=== PATIENT | male | born 1990 | race Caucasian/White ===

== ENCOUNTER 2023-01-01 22:27 | Emergency (ER) | payer BC, SELFPAY ==
[2023-01-01 22:35] VITALS: BP 157/57; PULSE 72; RESP 14; TEMP 36.6; O2SAT 100
[2023-01-01 23:10] VITALS: RESP 16
--- NOTE | 2023-01-01 23:38 | ED.GENADUL_ITS ---
Discharge Plan Disposition Patient Disposition: Home Discharge Details Chief Complaint: GenMedical Clinical Impression: Elevated blood pressure reading, Numbness and tingling in both hands Primary Care Provider: Ana Rosa,Local ED Provider: Cassy Napoles Home Meds and New Rx's Prescriptions: No Action No Known Home Meds Discharge Instructions Instructions: How to Take a Blood Pressure (ED), Hypertension (ED) Additional Instructions: 1. You should expect a packet in the mail regarding a primary care follow-up. 2. Take your blood pressure and documented at home. Make a follow-up appointment with primary care and bring your blood pressure readings along with your blood pressure machine at home to recheck it. 3. Return here for any new or worrisome symptoms such as persistent numbness or tingling, weakness, headache fever chills or any new or worrisome symptoms. Discharge Data Discharge Physician: Cassy Napoles Medical Decision Making This is a healthy 32-year-old male who just returned from 5 days in [place] for a bachelor constitution party where he was drinking, who presents with bilateral numbness and tingling in his hands which lasted 10 minutes at 10 AM this morning. His symptoms have resolved. He was concerned about dehydration but has been able to keep down Gatorade and has not had any vomiting or diarrhea. Clinically he appears well-hydrated and he has a normal neurologic exam. Sensation is intact in his arms there is no focal weakness. He feels back to baseline. I do not see any indication for radiographs or labs. My plan is to reassure him and arrange for primary care follow-up. I will advise him to check his blood pressure when he is not feeling anxious and to record it and bring it with him. I have advised that he bring his blood pressure machine with him to his follow- up appointment to correlate its accuracy. I have advised him to return here if he develops any new or worrisome symptoms such as unilateral weakness recurrent numbness or tingling or any concerns. The patient was understanding agree with the discharge plan. All his questions and concerns were addressed prior to discharge. He has not had a chest pain or shortness of breath. Differential Diagnosis Differential Diagnosis: Hypoventilation, electrolyte abnormality, dehydration Medical Records Medical records reviewed: Yes I reviewed the patient's medical records. HPI General Date/Time Provider Initiated Documentation: 01/01/23 23:38 . Information obtained by: family () and RN notes reviewed . HPI Narrative: The patient is a healthy 32-year-old male who has a history of a kidney infection but no history of hypertension. He returns today from a bachelor constitution party trip to [place]. He does admit to drinking quite a lot when he was there and was concerned that he was dehydrated. He presents today with complaints of feeling jittery and numbness and tingling in his hands and an elevated blood pressure that he believes was 150/80. The numbness and tingling has resolved. The episode occurred at 10 AM this morning. His said he was nervous at the time but she is not sure if he was hyperventilating. He denies any neck pain or trauma. His symptoms have resolved and only lasted about 10 minutes. He denies any previous similar episodes. He denies any vomiting or blood in the stool. He denies any falls or abdominal pain. No previous episodes. He is right-hand dominant. He denies any aggravating or alleviating factors. Related Data Home Medications Medication Instructions Recorded Confirmed Unknown [No Known Home Meds] 01/01/23 01/01/23 Allergies Allergy/AdvReac Type Severity Reaction Status Date / Time No Known Allergies Allergy Unverified 01/01/23 22:39 General Stated Complaint: GenMedical JANELL: 3 Review of Systems Narrative: No headaches. No blurry vision. No chest pain or abdominal pain. No unifocal weakness. No neck pain. No trauma. No nausea or vomiting or diarrhea. No shortness of breath Eyes Eyes: Denies blurry vision PFSH All Active Problems Elevated blood pressure reading (Acute) Numbness and tingling in both hands (Acute) Social History Smoking/Tobacco Use Status: Never Smoking risk assessment performed?: Yes Alcohol Intake: current Substance use type: does not use Housing: house Do you feel safe at home: Yes Do you feel safe in your relationship?: Yes Exam Const General: cooperative, healthy appearing, comfortable, no acute distress, well developed, well groomed and well hydrated Nutritional Appearance: average body habitus and well nourished Orientation: alert, awake and oriented x3 HENMT Head: normal to inspection, normocephalic and atraumatic Ears: hearing grossly normal bilaterally and external ears normal General nose exam: external nose normal, nares normal and no nasal discharge Face and sinus: normal facial exam, sinuses nontender and face symmetric Mouth: oral mucosae normal, lip normal, tongue normal, oropharynx normal, moist mucous membranes and other (Normal phonation. The patient is handling secretions.) Throat: posterior oropharynx normal and uvula midline Eyes General: appearance normal, both eyes and all related structures Eyelids: eyelids normal Conjunctivae: conjunctivae normal Sclera: sclerae normal Cornea: corneas normal Pupils: PERRL EOM: EOM intact bilaterally and No nystagmus Neck Neck: normal visual inspection, full ROM, no lymphadenopathy, no meningeal signs, trachea midline and supple Lymphatic: no lymphadenopathy noted Chest Chest: normal inspection of the chest Resp Effort & Inspection: normal respiratory effort, able to speak in complete sentences, no audible wheezes, no nasal flaring, no respiratory distress, no retractions, no stridor, not tachypneic, no tracheal deviation, no use of accessory muscles, No prolonged expiratory phase and other (Normal inspiratory to expiratory ratio.) Auscultation: clear to auscultation bilaterally, no rales, no rhonchi, no wheezes and no rubs Tactile Fremitus: tactile fremitus absent Cardio Jugular venous pressure: no JVD Palpation: normal PMI Rate: regular rate Rhythm: regular rhythm Heart Sounds: S1 normal, S2 normal, no gallops, no murmurs and no rubs GI Inspection: normal to inspection and non-distended Palpation: soft, no hepatosplenomegaly, no guarding and nontender Percussion: normal to percussion Auscultation: normal bowel sounds General: No CVA tenderness Back/Spine/Pelvis Back: no CVA tenderness and No back tenderness Cervical Spine: normal cervical lordosis, cervical ROM normal, No cervical muscular tenderness, No pain with cervical ROM, No cervical spinal tenderness and No step off deformity Thoracic/Lumbar Spine: thoracic and lumbar spine normal to inspection, No thoracic spinal tenderness and No lumbar spinal tenderness Pelvis: no pain with anterior-posterior compression and no pain with lateral compression Skin General skin exam: no rashes or lesions noted, turgor normal, no petechiae, no purpura and other (Skin is normal for ethnicity.) Lesions: no lesions Rashes: no rashes Trauma: no lacerations or abrasions Neuro General: patient alert, patient awake, patient oriented x3, moves all extremities, no meningeal signs, no focal motor deficits and CN's II-XI intact bilaterally Cranial Nerves: CN's II-XI intact bilaterally, PERRL, accommodation normal, EOM intact bilaterally, no nystagmus, facial strength normal, tongue midline, hearing normal and no nystagmus Cognition: normal cognition Speech: speech normal Gait: normal gait Motor: muscle tone normal throughout and strength 5/5 throughout Sensory Exam: no sensory deficits noted DTR's: Rt Biceps: 2+, Lt Biceps: 2+, Rt Brachioradialis: 2+, Lt Brachioradialis: 2+, Rt Patellar: 2+ and Lt Patellar: 2+ Extrem General: normal to inspection, full ROM, capillary refill normal, no clubbing, cyanosis or edema and no calf tenderness Psych Appearance: grossly normal Affect: normal affect Attitude: cooperative Thought Process: normal Thought Content: normal Insight: insight good Judgment: judgment good Other: The patient appears to have capacity make medical decisions. Course Vital Signs Vital signs: Vital Signs Temperature 36.6 C 01/01/23 22:35 Pulse 72 01/01/23 22:35 Respiratory Rate 14 01/01/23 22:35 Blood Pressure 157/57 H 01/01/23 22:35 Pulse Oximetry 100 01/01/23 22:35 Temperature 36.6 C 01/01/23 22:35 Temperature Source Temporal Artery Scan 01/01/23 22:35 Pulse 72 01/01/23 22:35 Respiratory Rate 16 01/01/23 23:10 Respiratory Effort Normal, Non-Labored 01/01/23 23:10 Respiratory Depth Normal 01/01/23 23:10 Respiratory Pattern Normal 01/01/23 23:10 Blood Pressure 157/57 H 01/01/23 22:35 Blood Pressure Position Sitting 01/01/23 22:35 Pulse Oximetry 100 01/01/23 22:35 Oxygen Delivery Method Room Air 01/01/23 22:35 Oxygen Flow Rate 0 01/01/23 22:35 Pain Level 0 01/01/23 22:35 PAWSS Have you Been Recently Intoxicated or Drunk Within the Last 30 days?: Yes Have you Ever Experienced Previous Episodes of Alcohol Withdrawal?: No Have you ever Experienced Withdrawal Seizures?: No Have you ever Experienced Delirium Tremens(DT)s?: No Have you ever undergone Alcohol Rehabilitation Treatment (i.e, inpt ot outpatient treatment programs)?: No Have you ever Experienced Blackouts?: No Have you ever Combined Alcohol with other Downers within the last 90 days?: No Have you ever Combined Alcohol with any other Substance of Abuse during the last 90 days?: No Positive Blood Alcohol level on Presentation? [PCS.BAL]: No Evidence of Increased Autonomic Activity (i.e. HR>120, tremor, sweating, agitation, nausea)?: No Result: 1
[2023-01-01 23:52] VITALS: BP 147/96; PULSE 90; RESP 14; O2SAT 99
--- NOTE | 2023-01-02 00:15 | NUR.NOTE ---
Referral to Care Management to establish pcp sooner rather than later for elevated blood pressure.Nursing Note:
== END 2023-01-02 00:12 | disposition home or self-care (01) ==
PROVIDERS: Emergency Provider Emergency Medicine Emergency Medical Services
DX: R03.0 Elevated blood-pressure reading, without diagnosis of hypertension (principal); R20.0 Anesthesia of skin; R20.2 Paresthesia of skin
CPT/HCPCS: 99281; 99282

== ENCOUNTER 2023-01-02 13:50 | Emergency (ER) | payer BC, SELFPAY ==
--- NOTE | 2023-01-02 13:45 | RT.EKG_ITS ---
APPROVED REPORT Exam: Resting ECG Reason for Exam: chest pain Patient Location: E HR:81 bpm ECG Measurements Heart Rate 81 AXIS RI 167 P 53 QRSd 93 QRS 7 QT 362 T 30 QTc 420 Conclusion Sinus rhythm...normal P axis, V-rate 60- 99
[2023-01-02 13:52] VITALS: BP 158/102; PULSE 80; RESP 18; TEMP 37.1; O2SAT 100
--- NOTE | 2023-01-02 14:00 | DI.RAD_ITS ---
Exam(s) XR CHEST 2V PA LATERAL EXAM: XR CHEST 2V PA LATERAL CLINICAL HISTORY: CP TECHNIQUE: 2D digital imaging was performed. COMPARISON: No exams were available for comparison FINDINGS: HEART: Normal size. Aorta: Not dilated. PULMONARY VASCULATURE: Normal. LUNGS: Clear. PLEURAL SPACE: No pleural effusion or pneumothorax. BONE:Unremarkable for age. IMPRESSION: No acute abnormality. DATA REPOSITORY: RADIATION DOSE DELIVERED:
--- NOTE | 2023-01-02 14:08 | ED.GENADUL_ITS ---
Discharge Plan Disposition Patient Disposition: Home Discharge Details Clinical Impression: Elevated blood pressure reading, Chest pain, Esophagitis with gastritis Primary Care Provider: Ana Rosa,Local ED Provider: Loreto Calhoun Home Meds and New Rx's Prescriptions: New omeprazole 20 mg capsule,delayed release(DR/EC) 20 mg PO DAILY Qty: 30 0RF Discharge Instructions Instructions: Chest Pain (ED), Gastritis (ED) Additional Instructions: Please follow-up with the [facility] or physician of your choice. Let them know that you are in the ER for chest pain and we wanted you to have follow-up. Take your blood pressure every morning and record these values to take to your new primary care doctor. Try Prilosec 1 tablet/day for epigastric discomfort. You may use Maalox along with this. Return to ED for crushing chest pain, difficulty breathing, vomiting or pooping blood, any other concerns. Medical Decision Making Patient was evidently referred to [facility] for a follow-up appointment after being in the ED last night worried about his blood pressure (he said his hands were throbbing and then turned numb). He evidently refused to follow-up with them. I have told him that we do not usually start blood pressure medicine on someone after only afew blood pressure readings. His has a BP machine at home and I have asked him to take his blood pressure every morning at the same time and record these. He can follow-up with whoever else he likes and bring the numbers to them. I have advised a PPI for his epigastric /lower sternum pain. I suspect he may have irritation from the heavy drinking he recently did in [place]. His EKG is normal and his troponin is negative. He has had pain constantly since yesterday. He has no risk factors for ACS. Medical Records Medical records reviewed: Yes I reviewed the patient's medical records. Lab Data Lab results reviewed: Yes I reviewed the patient's lab results. Lab results narrative: Patient's labs including lipase and troponin are within normal limits except for a glucose of 109 and a total bili of 1.5. Latter is likely related to Gilbert's. ECG Data Attestation: I personally reviewed and interpreted this ECG (s) as follows: (Normal sinus rhythm at 80, normal intervals and EKG.) Interpretation: CXR: NAD HPI General Date/Time Provider Initiated Documentation: 01/02/23 14:05 . HPI Narrative: This 32-year-old male patient presents with a chief complaint of lower substernal chest pain that began 2 days ago. Patient states that he flew in from [place] yesterday arriving about 2:00 in the afternoon. He states he was partying and drinking a lot is down there. Normally he drinks a 12 pack a week. Pain is an ache and does not radiate anywhere. Nothing makes it better or worse. Weight for short time yesterday afternoon but then returned and has been constant since. Patient has no fever or URI symptoms. There is no shortness of breath or abdominal pain. He has no nausea, vomiting, or diarrhea. He has no pedal edema or calf pain. He was seen here yesterday because he felt like his blood pressure was high. I asked him what he meant by this and he says that his hands were pulsating and then they became numb. States he does not know if all of this is just from anxiety. He has no prior history of concussion, diabetes, high cholesterol. There is no family history of ACS. He does not use cocaine or methamphetamine. Related Data Home Medications Medication Instructions Recorded Confirmed omeprazole 20 mg capsule,delayed 20 mg PO DAILY #30 caps 01/02/23 release Previous Rx's Medication Instructions Recorded omeprazole 20 mg capsule,delayed 20 mg PO DAILY #30 caps 01/02/23 release Allergies Allergy/AdvReac Type Severity Reaction Status Date / Time No Known Allergies Allergy Unverified 01/02/23 13:57 General Stated Complaint: Chest Pain JANELL: 3 Review of Systems Constitutional Constitutional: Denies chills, Denies fever(s), Denies headache(s) and Denies weakness Eyes Eyes: Denies diplopia and Reports other (no redness) ENT Ears, Nose, Mouth, and Throat: Denies otalgia, Denies headache(s), Denies nasal congestion, Denies nasal discharge, Denies neck pain and Denies sore throat Cardiovascular Cardiovascular: Denies chest pain, Denies palpitations and Denies dyspnea Respiratory Respiratory: Denies cough and Denies dyspnea Gastrointestinal Gastrointestinal: Denies abdominal pain, Denies diarrhea, Denies nausea and Denies vomiting Genitourinary Genitourinary: Denies difficulty urinating and Denies dysuria Musculoskeletal Musculoskeletal: Denies myalgias, Denies muscle weakness, Denies neck pain, Denies numbness and Reports other (edema) Integumentary/Breasts Skin/Breast: Denies change in pigmentation and Denies rash Neurologic Neurologic: Denies headache(s), Denies numbness and Denies weakness Endocrine Endocrine: Denies palpitations PFSH All Active Problems (Updated 01/02/23 @ 15:58 by Loreto Calhoun MD) Elevated blood pressure reading (Acute) Numbness and tingling in both hands (Acute) Chest pain (Acute) Esophagitis with gastritis (Acute) Social History Smoking/Tobacco Use Status: Never Smoking risk assessment performed?: Yes Alcohol Intake: current Substance use type: does not use Housing: house Do you feel safe at home: Yes Do you feel safe in your relationship?: Yes Exam Const General: no acute distress, well developed, well groomed and not in acute distress Nutritional Appearance: well nourished Orientation: alert and oriented x3 HENMT Head: normocephalic and atraumatic Ears: external ears normal Mouth: oropharynx normal and moist mucous membranes Throat: posterior oropharynx normal Eyes Conjunctivae: conjunctivae normal Neck Neck: full ROM and supple Chest Chest: normal inspection of the chest Resp Effort & Inspection: normal respiratory effort Auscultation: clear to auscultation bilaterally Cardio Rate: regular rate Rhythm: regular rhythm Heart Sounds: no murmurs and no rubs GI Inspection: normal to inspection Palpation: soft, nontender and other (non distended) Auscultation: normal bowel sounds Skin General skin exam: no rashes or lesions noted and other (pink, warm, dry) Neuro General: patient alert, patient awake and patient oriented x3 Speech: speech normal Motor: other (CONROY) Sensory Exam: no sensory deficits noted Extrem General: normal to inspection, full ROM and pedal edema present Psych Mental Status: mental status grossly normal Speech and Movement: speech and movement normal Affect: normal affect Course Vital Signs Vital signs: Vital Signs Temperature 37.1 C 01/02/23 13:52 Pulse 80 01/02/23 13:52 Respiratory Rate 18 01/02/23 13:52 Blood Pressure 158/102 H 01/02/23 13:52 Pulse Oximetry 100 01/02/23 13:52 Temperature 37.1 C 01/02/23 13:52 Temperature Source Temporal Artery Scan 01/02/23 13:52 Pulse 80 01/02/23 13:52 Respiratory Rate 18 01/02/23 13:52 Blood Pressure 158/102 H 01/02/23 13:52 Blood Pressure Position Sitting 01/02/23 13:52 Pulse Oximetry 100 01/02/23 13:52 Oxygen Delivery Method Room Air 01/02/23 13:52 Oxygen Flow Rate 0 01/02/23 13:52 Pain Level 4 01/02/23 13:52
[2023-01-02] MEDS: Magic Mouthwash 119 ML BTL 10 ML PO (14:45)
[2023-01-02 15:06] LABS: Abs Immature Grans 0.05 10^3/uL (0.0-0.06); Absolute Basophil Count 0.05 10^3/uL (0.0-0.2); Absolute Eosinophil Count 0.38 10^3/uL (0.0-0.7); Absolute Lymphocyte Count 1.44 10^3/uL (1.2-3.4); Absolute Monocyte Count 0.65 10^3/uL (0.1-0.8); Absolute Neutrophil Count 5.05 10^3/uL (1.2-6.7); Basophils % 0.7; HCT 47.1 % (40.0-50.0); HGB 17.2 g/dL (13.5-17.5); Immature Grans % 0.7; Lymphocytes % 18.9; MCH 31.7 pg (27.0-33.0); MCHC 36.5 % (32.0-36.0); MCV 87 fL (80-95); MPV 9.3 fL (8.0-11.0); Monocytes % 8.5; Neutrophils % 66.2; Platelet Count 320 10^3/uL (130-400); RBC 5.42 10^6/uL (4.36-5.78); RDW-SD 37.9 fL; WBC 7.62 10^3/uL (4.4-10.8)
[2023-01-02 15:32] LABS: ALT 63 U/L (16-63); AST 30 U/L (15-37); Albumin 4.6 g/dL (3.4-5.0); Alkaline Phosphatase 85 U/L (46-116); Anion Gap 10.3 mmol/L (3-11); BUN 14 mg/dL (7-18); Bilirubin, Total 1.5 mg/dL (0.2-1.0); CO2 28.7 mmol/L (21.0-32.0); CREATININE 1.3 mg/dL (0.70-1.30); Calcium 9.5 mg/dL (8.5-10.1); Chloride 100 mmol/L (98-107); Estimated GFR 75.32 (mL/min/1.73m2); Glucose 109 mg/dL (74-106); Lipase 20 U/L (16-77); Magnesium 2.2 mg/dL (1.8-2.4); Sodium 139 mmol/L (136-145)
[2023-01-02 15:38] LABS: Troponin I < 50 ng/L (<or=60)
[2023-01-02 15:58] VITALS: RESP 16
[2023-01-02 16:00] VITALS: BP 143/105; PULSE 72; RESP 16; TEMP 36.7; O2SAT 98
== END 2023-01-02 16:29 | disposition home or self-care (01) ==
PROVIDERS: Emergency Provider Emergency Medicine
DX: R06.02 Shortness of breath (principal); R07.9 Chest pain, unspecified; R03.0 Elevated blood-pressure reading, without diagnosis of hypertension; K20.90 Esophagitis, unspecified without bleeding; R20.0 Anesthesia of skin
CPT/HCPCS: 36415; 80053; 83690; 93005; 99284; 71046; 83735; 84484; 85025; 93010; 99283